=== PATIENT | female | born 1990 | race Caucasian/White ===

== ENCOUNTER 2017-05-22 16:25 | Inpatient (IN) | payer MEDICAID ==
[~2017-05-22] VITALS: Ht 162.6 cm; Wt 44.0 kg
[2017-05-22] MEDS ORDERED: ZOLPIDEM TARTRATE 10 MG TABLET PO PRN (17:15)
[2017-05-22] MEDS: LORazepam 2 MG TABLET PO PRN ×2 (17:33→21:42)
[2017-05-22 18:12] VITALS: BP 115/66
[2017-05-22] MEDS: BACITRACIN 28.4 GM OINTMENT TP PRN (19:15)
[2017-05-22] MEDS: NICOTINE 21 MG/24 HOUR PATCH TD SCH (19:26)
[2017-05-23 00:30] VITALS: BP 111/90
[2017-05-23] MEDS: LORazepam 2 MG TABLET PO PRN ×3 (01:38→13:19)
[2017-05-23 08:24] LABS: BASOPHILS % (AUTO) 0.6 % (0.0-2.0); EOSINOPHILS % (AUTO) 0.3 % (1.0-6.0); HEMATOCRIT 43.4 % (36-46); LYMPHOCYTES # (AUTO) 1.7 K/uL (1.0-4.8); LYMPHOCYTES % (AUTO) 30.6 % (22.0-44.0); MEAN CORPUSCULAR HEMOGLOBIN 30.8 pg (26.0-34.0); MEAN CORPUSCULAR HGB CONC 34.7 G/dL (31.0-37.0); MEAN CORPUSCULAR VOLUME 89 fL (80-100); MONOCYTES # (AUTO) 0.5 K/uL (0.1-1.0); MONOCYTES % (AUTO) 9.1 % (2.0-9.0); NEUTROPHILS # (AUTO) 3.2 K/uL (1.8-7.7); NEUTROPHILS % (AUTO) 59.4 % (40.0-70.0); PLATELET COUNT (AUTO) 237 K/uL (150-450); RED BLOOD CELL COUNT(AUTO) 4.88 MIL/uL (4.00-5.20); RED CELL DISTRIBUTION WIDTH 17.2 % (11.5-14.5); WHITE BLOOD COUNT (AUTO) 5.5 K/uL (4.5-11.0)
[2017-05-23] MEDS: NICOTINE 21 MG/24 HOUR PATCH TD SCH (08:38)
[2017-05-23 08:43] VITALS: BP 129/84
[2017-05-23 08:45] LABS: HEMOGLOBIN A1C 5.4 % (4.5-6.2)
[2017-05-23 08:51] LABS: ALANINE AMINOTRANSFERASE 21 U/L (12-78); ALBUMIN 4.3 g/dL (3.4-5.0); ANION GAP 8 mmol/L (8-16); ASPARTATE AMINOTRANSFERASE 22 U/L (15-37); BILIRUBIN,TOTAL 1.5 mg/dL (0.1-1.0); CALCIUM, TOTAL 9.5 mg/dL (8.8-10.5); CARBON DIOXIDE 29 mmol/L (22-29); CHLORIDE 100 mmol/L (98-107); CREATININE 0.82 mg/dL (0.60-1.30); GLOMERULAR FILTR. RATE CALC > 60 mL/min (>60); POTASSIUM 4.4 mmol/L (3.5-5.1); SODIUM SERUM 137 mmol/L (136-145); TOTAL PROTEIN, SERUM 7.7 g/dL (6.4-8.2); UREA NITROGEN, BLOOD 17 mg/dL (7-18)
[2017-05-23 09:22] LABS: RBC MORPHOLOGY COMMENT ABNORMAL RBC MORPH
[2017-05-23] MEDS ORDERED: METOCLOPRAMIDE HCL 10 MG TABLET PO PRN (11:15)
[2017-05-23] MEDS ORDERED: ACETAMINOPHEN 500 MG TABLET PO PRN (11:15)
[2017-05-23] MEDS ORDERED: GABAPENTIN 400 MG CAPSULE PO SCH (13:00)
[2017-05-23] MEDS ORDERED: CITALOPRAM HYDROBROMIDE 20 MG TABLET PO SCH (13:15)
[2017-05-23] MEDS: BACITRACIN 28.4 GM OINTMENT TP PRN (13:40)
[2017-05-23] MEDS ORDERED: GABA-533 PO (14:32)
[2017-05-23] MEDS ORDERED: CITA20TA9 PO (14:32)
[2017-05-23] MEDS ORDERED: NORT25 PO (14:32)
[2017-05-23] MEDS ORDERED: NORTRIPTYLINE HCL 25 MG CAPSULE PO SCH (21:00)
[2017-05-24] MEDS ORDERED: CITALOPRAM HYDROBROMIDE 20 MG TABLET PO SCH (09:00)
== END 2017-05-23 15:35 | disposition left against medical advice (07) | DRG 751 ==
LOC: B3A 17:17
PROVIDERS: ADMIT Psychiatry & Neurology Child & Adolescent Psychiatry; ATTEND Psychiatry & Neurology Child & Adolescent Psychiatry
DX: F32.2 Major depressive disorder, single episode, severe without psychotic features (principal); M35.2 Behcet's disease; F11.20 Opioid dependence, uncomplicated; F50.9 Eating disorder, unspecified; K51.90 Ulcerative colitis, unspecified, without complications; F12.10 Cannabis abuse, uncomplicated; G89.4 Chronic pain syndrome; K29.70 Gastritis, unspecified, without bleeding; Z53.21 Procedure and treatment not carried out due to patient leaving prior to being seen by health care provider; Z82.49 Family history of ischemic heart disease and other diseases of the circulatory system; Z88.1 Allergy status to other antibiotic agents
CPT/HCPCS: 83036; 84439; 84443; 87081